=== PATIENT | male | born 1990 | race Caucasian/White ===

== ENCOUNTER 2019-09-01 09:38 | Emergency (ER) | payer SELFPAY ==
[~2019-09-01] VITALS: Ht 190.5 cm; Wt 116.1 kg
--- NOTE | 2019-09-01 09:58 | NUR ---
NO ANSWER FROM [facility]
[2019-09-01] MEDS ORDERED: DEXAMETHASONE 4 MG TABLET ONE (10:37)
[2019-09-01 11:00] VITALS: BP 116/79
[2019-09-01] MEDS ORDERED: DEXAMETHASONE 4 MG TABLET PO ONE (11:00)
--- NOTE | 2019-09-01 11:01 | NUR ---
Patient/Caregiver given discharge instructions and they have confirmed that they understand the instructions. Patient ambulatory with steady gait.
== END 2019-09-01 11:02 | disposition home or self-care (01) ==
LOC: ED 10:16
DX: J02.0 Streptococcal pharyngitis (principal); F17.200 Nicotine dependence, unspecified, uncomplicated
CPT/HCPCS: 99283

== ENCOUNTER 2020-11-01 23:38 | Emergency (ER) | payer OTHER ==
[~2020-11-01] VITALS: Ht 190.5 cm; Wt 122.5 kg
[2020-11-01] MEDS ORDERED: CEPH250T PO (23:57)
[2020-11-02] MEDS ORDERED: KETOROLAC 30 MG/1 ML IM ONE
[2020-11-02] MEDS ORDERED: DIAZEPAM 5 MG TABLET PO ONE
[2020-11-02] MEDS ORDERED: KETOROLAC 30 MG/1 ML ONE (00:06)
[2020-11-02] MEDS ORDERED: DIAZEPAM 5 MG TABLET ONE (00:06)
[2020-11-02] MEDS ORDERED: LIDODERM 5% PATCH TD ONE ×2 (00:06)
--- NOTE | 2020-11-02 00:27 | NUR ---
PATIENT AMBULATORY AROUND ROOM WITH STEADY GAIT. DENIES VISION CHANGES, EXTREMITY WEAKNESS, DIZZINESS, LIGHTHEADEDNESS, CONFUSION. DENIES RECENT TRAUMA. STATES HE WORKS IN [place] AND THIS PAIN STARTED WHILE AT WORK. HE DOES ALSO REPORT THAT HE HAD NOT BLUNT FORCE TRAUMA AT WORK AND WEAR SAFETY HARD HAT AT WORK. DOES STATE THAT THIS HAS HAPPENED IN THE PAST WHILE AT WORK BUT PAIN SUBSIDED WITHIN A FEW DAYS. PATIENT STATES HE RESEARCHED HIS SYMPTOMS ONLINE AND HE STATES "IT SAID I COULD HAVE BLEEDING IN MY BRAIN". PROVIDER NOTIFIED OF THIS STATEMENT. IN NAD. CLEAR SPEECH. SAFETY MAINTAINED. CALL [facility] [place]
[2020-11-02 00:50] VITALS: BP 125/71
== END 2020-11-02 00:59 | disposition home or self-care (01) ==
LOC: ED 11-02 00:31
DX: S16.1XXA Strain of muscle, fascia and tendon at neck level, initial encounter (principal); R51.9 Headache, unspecified; F17.210 Nicotine dependence, cigarettes, uncomplicated; X58.XXXA Exposure to other specified factors, initial encounter; Y93.89 Activity, other specified; Y92.89 Other specified places as the place of occurrence of the external cause; Y99.8 Other external cause status
CPT/HCPCS: 96372; 99283; J1885